=== PATIENT | male | born 2000 | race African-American/Black ===

== ENCOUNTER 2021-10-31 13:28 | Emergency (ER) | payer OTHER, SELFPAY ==
[2021-10-31] MEDS ORDERED: Ketorolac Tromethamine 30 MG/ML VIAL ONE (15:55)
== END 2021-10-31 16:10 | disposition home or self-care (01) ==
LOC: CSHERS 13:28
DX: M25.511 Pain in right shoulder (principal)
CPT/HCPCS: 96372; J1885

== ENCOUNTER 2022-07-29 14:17 | Outpatient (CLI) | payer OTHER ==
[~2022-07-29 14:17] MED LIST: Magnevist 469MG/ML 20 ML VIAL ONE
== END 2022-07-29 14:18 | disposition home or self-care (01) ==
LOC: CSHMRI 14:17
PROVIDERS: ATTEND Physician Assistant
DX: H91.21 Sudden idiopathic hearing loss, right ear (principal)
CPT/HCPCS: 70553; A9579